=== PATIENT | female | born 1985 | race Caucasian/White ===

== ENCOUNTER → 2016-05-09 | Outpatient (CLI) | payer MEDICAID ==
[~2016-05-09] MED LIST: COLACE-DPS100 MG PO; FEOSOL-DPS325 MG PO; LAN-O-SOOTHE7 GM TP; MOTRIN-DPS800 MG PO; NIPPLECREAM TP; PERCOCET 10 DPS1 TAB PO; PRENATAL VITAM1 EAC4 PO
== END | disposition home or self-care (01) ==
LOC: RAD.S 05-03 13:00
DX: N63 Unspecified lump in breast (principal)

== ENCOUNTER → 2016-06-21 | Outpatient (CLI) | payer MEDICAID | END | disposition home or self-care (01) | LOC: RAD.S 12:54 | DX: Z36 Encounter for antenatal screening of mother (principal); Z3A.20 20 weeks gestation of pregnancy ==